=== PATIENT | female | born 1935 | race Two or more races ===

== ENCOUNTER 2019-04-08 11:04 | Outpatient (CLI) | payer MEDICARE, OTHER | END 2019-04-08 23:59 | disposition home or self-care (01) | LOC: CT 11:04 | PROVIDERS: ATTEND Internal Medicine Interventional Cardiology | DX: I70.0 Atherosclerosis of aorta (principal); I51.7 Cardiomegaly; J98.4 Other disorders of lung; I31.3 Pericardial effusion (noninflammatory); I89.8 Other specified noninfective disorders of lymphatic vessels and lymph nodes; K76.89 Other specified diseases of liver; R93.89 Abnormal findings on diagnostic imaging of other specified body structures; M47.819 Spondylosis without myelopathy or radiculopathy, site unspecified | CPT/HCPCS: 71250-TC ==